=== PATIENT | female | born 1990 | race Caucasian/White ===

== ENCOUNTER 2017-04-26 10:52 | Emergency (ER) | payer MEDICAID ==
[2017-04-26 12:20] VITALS: BP 127/72; PULSE 101; RESP 16; TEMP 99; O2SAT 100
--- NOTE | 2017-04-26 12:58 | ED PDOC ---
HPI: Female Pain Time Seen by Provider: 04/26/17 12:52 Chief Complaint (Nursing): Female Genitourinary History Per: Patient (Dysuria and frequency x 1 week. Assoc with LLq and suprapubic pain. No fever. No NVD) Onset/Duration Of Symptoms: Days (7) Current Symptoms Are (Timing): Still Present Severity: Mild Pain Scale Rating Of: 2 Quality Of Discomfort: Burning Associated Symptoms: Urinary Symptoms. denies: Fever, Nausea, Vomiting, Diarrhea Past Medical History Vital Signs: Last Vital Signs Temp 99.0 F 04/26/17 12:18 Pulse 101 H 04/26/17 12:18 Resp 16 04/26/17 12:18 BP 127/72 04/26/17 12:18 Pulse Ox 100 04/26/17 12:18 - Medical History PMH: Asthma - Family History Family History: States: Unknown Family Hx - Home Medications Home Medications: Ambulatory Orders Medication Instructions Recorded Cyclobenzaprine HCl [Flexeril] 10 mg PO Q8 #20 tab 02/09/15 Ibuprofen [Motrin Tab] 800 mg PO Q8 PRN #20 tab 02/09/15 Naproxen [Naprosyn Tab] 500 mg PO BID PRN #20 tab 02/18/15 Ciprofloxacin HCl [Cipro] 500 mg PO BID #20 tab 04/26/17 - Allergies Allergies/Adverse Reactions: Allergies Allergy/AdvReac Type Severity Reaction Status Date / Time No Known Allergies Allergy Verified 02/09/15 00:29 Review of Systems Constitutional: Negative for: Fever, Chills Gastrointestinal: Positive for: Abdominal Pain Genitourinary Female: Positive for: Dysuria, Frequency Musculoskeletal: Positive for: Back Pain Physical Exam - Physical Exam Appears: Positive for: Non-toxic, No Acute Distress Skin: Positive for: Warm, Dry Gastrointestinal/Abdominal: Positive for: Bowel Sounds, Soft. Negative for: Tenderness Back: Negative for: L CVA Tenderness, R CVA Tenderness - ECG O2 Sat by Pulse Oximetry: 100 Disposition - Clinical Impression Clinical Impression: Urinary tract infection - Patient ED Disposition Is Patient to be Admitted: No Counseled Patient/Family Regarding: Studies Performed, Diagnosis, Need For Followup, Rx Given - Disposition Referrals: [facility] [Outside] Disposition: Routine/Home Disposition Time: 12:57 Condition: FAIR Prescriptions: Ciprofloxacin HCl [Cipro] 500 mg PO BID #20 tab Instructions: Urinary Tract Infection in Women (ED)
== END 2017-04-26 13:24 | disposition home or self-care (01) ==
LOC: H.ER 10:52
DX: N39.0 Urinary tract infection, site not specified (principal); J45.909 Unspecified asthma, uncomplicated